=== PATIENT | female | born 1995 | race Caucasian/White ===

== ENCOUNTER 2020-08-01 03:58 | Inpatient (IN) ==
[2020-08-01] MEDS ORDERED: Lidocaine 1% 20 ML MDV INFILT PRN (04:13)
[2020-08-01] MEDS ORDERED: Metoclopramide 10 MG/2 ML VIAL IVP PRN (04:13)
[2020-08-01] MEDS ORDERED: Azithromycin 500 MG in 0.9 % Sodium Chloride 250 ML IVPB ONE (04:13)
[2020-08-01] MEDS ORDERED: Famotidine 20 MG/2 ML VIAL IVP PRN (04:13)
[2020-08-01] MEDS ORDERED: miSOPROStoL 25 MCG TABLET PO PRN (04:13)
[2020-08-01] MEDS ORDERED: Ondansetron 4 MG/2 ML VIAL IVP PRN (04:13)
[2020-08-01] MEDS ORDERED: Naloxone 0.4 MG/ML INJ IVP PRN (04:13)
[2020-08-01 04:48] LABS: Basophils % 0.3 %; Eosinophils # 0.1 K/mcL (0.0-0.6); Eosinophils % 1.5 %; Hematocrit 30.1 % (35.3-44.9); Hemoglobin 9.6 g/dL (11.5-15.4); Immature Granulocytes % 0.7 % (0-4); Lymphocytes # 2.2 K/mcL (0.6-4.6); Lymphocytes % 23.8 %; Mean Corpuscular HGB Conc 31.9 g/dL (31.6-35.5); Mean Corpuscular Volume 84.6 fL (83.0-100.0); Mean Platelet Volume 10.3 fL (9.4-12.4); Monocytes # 0.7 K/mcL (0.0-1.3); Monocytes % 8.2 %; Neutrophils # 5.9 K/mcL (1.6-8.9); Platelet Count 292 K/mcL (140-400); Red Blood Count 3.56 M/mcL (3.82-4.97); Red Cell Distribution Width 13.7 % (11.5-14.5); Segmented Neutrophils % 65.5 %; White Blood Count 9.1 K/mcL (4.3-11.1)
[2020-08-01 04:57] LABS: Amphetamine Screen,Urine Negative ng/mL (Cutoff=1000); Barbiturate Screen,Urine Negative ng/mL (Cutoff=200); Benzodiazepines Screen,Urine Negative ng/mL (Cutoff=200); Cannabinoid Screen,Urine Positive ng/mL (Cutoff = 50); Cocaine Screen,Urine Negative ng/mL (Cutoff= 300); Opiate Screen,Urine Negative ng/mL (Cutoff=300); Phencyclidine Screen,Urine Negative ng/mL (Cutoff=25)
[2020-08-01] MEDS ORDERED: Ropivacaine/PF 0.2% 20 ML VIAL EP ONE (05:28)
[2020-08-01] MEDS ORDERED: EPHEDrine 50 MG/ML VIAL IVP PRN (05:28)
[2020-08-01] MEDS ORDERED: *HR* FentaNYL (PF) 100 MCG/2 ML VIAL EP ONE (05:28)
[2020-08-01] MEDS ORDERED: Epidural Premix (fent/bupiv) 110 ML EP SCH (05:30)
[2020-08-01] MEDS: *HR* FentaNYL (PF) 100 MCG/2 ML VIAL IVP PRN ×2 (09:37→15:11)
[2020-08-01] MEDS: Ringers Solution, Lactated 1,000 ML IVC SCH ×2 (09:43→16:43)
[2020-08-01] MEDS ORDERED: *HR* FentaNYL (PF) 100 MCG/2 ML VIAL ONE (10:54)
[2020-08-01] MEDS ORDERED: Ropivacaine/PF 0.2% 20 ML VIAL ONE (10:54)
[2020-08-01] MEDS ORDERED: Oxytocin 20 units/ LR 1000 mL 20 UNIT/1,000 ML BAG IVC ONE (12:25)
[2020-08-01] MEDS ORDERED: Oxytocin 20 units/ LR 1000 mL 20 UNIT/1,000 ML BAG IVC SCH ×2 (12:30→18:30)
[2020-08-01] MEDS ORDERED: Acetaminophen 325 MG TABLET PO PRN (18:27)
[2020-08-01] MEDS ORDERED: Rho Immune Globulin 1,500 UNIT SYRINGE IM PRN (18:27)
[2020-08-01] MEDS ORDERED: Ibuprofen 600 MG TABLET PO PRN (18:27)
[2020-08-01] MEDS ORDERED: Measles/Mumps/Rubella Vacc 0.5 ML VIAL SQ PRN (18:27)
[2020-08-02 06:04] LABS: Basophils % 0.3 %; Eosinophils # 0.1 K/mcL (0.0-0.6); Eosinophils % 0.5 %; Hematocrit 25.4 % (35.3-44.9); Immature Granulocytes % 0.5 % (0-4); Lymphocytes # 2.3 K/mcL (0.6-4.6); Lymphocytes % 16.5 %; Mean Corpuscular HGB Conc 31.5 g/dL (31.6-35.5); Mean Corpuscular Hemoglobin 26.7 pg (28.0-33.3); Mean Corpuscular Volume 84.7 fL (83.0-100.0); Mean Platelet Volume 10.2 fL (9.4-12.4); Monocytes # 1.2 K/mcL (0.0-1.3); Monocytes % 8.4 %; Neutrophils # 10.3 K/mcL (1.6-8.9); Platelet Count 221 K/mcL (140-400); Segmented Neutrophils % 73.8 %
[2020-08-02] MEDS ORDERED: Prenatal Vit/FA 1 EACH TABLET PO SCH (09:00)
[2020-08-02 15:41] VITALS: BP 128/60
== END 2020-08-02 20:38 | disposition home or self-care (01) | DRG 807 ==
LOC: 1NENULAB 03:58 → 1NENUOBS 21:23
PROVIDERS: ADMIT Student in an Organized Health Care Education/Training Program; ATTEND Student in an Organized Health Care Education/Training Program